=== PATIENT | male | born 1975 | race Two or more races ===

== ENCOUNTER 2018-09-01 17:26 | Observation (INO) | payer BC ==
[2018-09-01] MEDS ORDERED: Sodium Chloride 0.9% 2.5 ML Syringe FLUSH PRN (17:29)
[2018-09-01] MEDS ORDERED: Sodium Chloride 0.9% 1,000 ML IV ONE (17:29)
[2018-09-01] MEDS ORDERED: Sodium Chloride 0.9% 10 ML Syringe FLUSH PRN (17:29)
--- NOTE | 2018-09-01 17:30 | EDM.PDOC ---
ED HPI GENERAL MEDICAL PROBLEM - General Chief Complaint: Chest Pain Stated Complaint: CHEST PAIN Time Seen by Provider: 09/01/18 17:29 Source of Information: Reports: Patient History Limitations: Reports: No Limitations - History of Present Illness INITIAL COMMENTS - FREE TEXT/NARRATIVE: HISTORY AND PHYSICAL: History of present illness: Patient is a 43-year-old male who presents to the emergency room today with complaints of chest pain and tachycardia. He states while at work he started to develop chest pain and felt like "my heart was racing". He states this was intense for approximately 15 minutes but since arriving to the emergency room feels like his symptoms have improved (has been ongoing for approx 30 minutes since arrival to ED). Patient denies any fever, chills, headache, change in vision, syncope or near syncope. Denies any back pain, shortness of breath or cough. Denies any abdominal pain, nausea, vomiting, diarrhea, constipation or dysuria. Has not noted any blood in urine or stool. Patient has been eating and drinking appropriately. Review of systems: As per history of present illness and below otherwise all systems reviewed and negative. Past medical history: As per history of present illness and as reviewed below otherwise noncontributory. Surgical history: As per history of present illness and as reviewed below otherwise noncontributory. Social history: See social history for further information Family history: As per history of present illness and as reviewed below otherwise noncontributory. Physical exam: General: Well-developed and well-nourished 43-year-old male. Alert and oriented. Nontoxic appearing and in no acute distress. HEENT: Atraumatic, normocephalic, pupils equal and reactive bilaterally, negative for conjunctival pallor or scleral icterus, mucous membranes moist, TMs normal bilaterally, throat clear, neck supple, nontender, trachea midline. No drooling or trismus noted. No meningeal signs. No hot potato voice noted. Lungs: Clear to auscultation, breath sounds equal bilaterally, chest nontender. Heart: Irregular rate and rhythm with heart rate of 120-140s. Abdomen: Soft, nondistended, nontender. Negative for masses or hepatosplenomegaly. Negative for costovertebral tenderness. Pelvis: Stable nontender. Skin: Intact, warm, dry. No lesions or rashes noted. Extremities: Atraumatic, moves all extremities per self without difficulty or deficits, negative for cords or calf pain. Neurovascular unremarkable. Neuro: Awake, alert, oriented. Cranial nerves II through XII unremarkable. Cerebellum unremarkable. Motor and sensory unremarkable throughout. Exam nonfocal. Notes: Pulse has improved down to the 90s to 100's. Patient does have an elevated troponin. Contacted Dr. Veloz about keeping this patient for observation. He is agreeable that this patient would benefit from further evaluation and management. Patient and at bedside are aware and agreeable to plan of care. Denies any further questions or concerns. Diagnostics: CBC, CMP, troponin, EKG, one view chest Therapeutics: IV fluid, Diltiazem Impression: New-onset of atrial fibrillation Plan: Observation admission to [facility] telemetry Definitive disposition and diagnosis as appropriate pending reevaluation and review of above. chest Pain Score (Numeric/FACES): 2 - Related Data Allergies Allergy/AdvReac Type Severity Reaction Status Date / Time No Known Allergies Allergy Verified 09/01/18 17:32 Home Meds: Home Meds . [No Known Home Meds] 09/01/18 [History] ED ROS GENERAL - Review of Systems Review Of Systems: ROS reveals no pertinent complaints other than HPI. ED EXAM, GENERAL - Physical Exam Exam: See Below (See dictation) Course - Vital Signs Last Recorded V/S: Last Vital Signs Temp 97.7 F 09/01/18 17:28 Pulse 90 09/01/18 18:00 Resp 18 09/01/18 18:00 BP 122/76 09/01/18 18:00 Pulse Ox 98 09/01/18 18:00 - Orders/Labs/Meds Orders: Active Orders 24 hr Category Date Time Status EKG Documentation Completion [RC] STAT Care 09/01/18 17:29 Active Sodium Chloride 0.9% [Normal Saline] 1,000 ml Med 09/01/18 17:29 Active IV STAT Sodium Chloride 0.9% [Saline Flush] Med 09/01/18 17:29 Active 10 ml FLUSH ASDIRECTED PRN Sodium Chloride 0.9% [Saline Flush] Med 09/01/18 17:29 Active 2.5 ml FLUSH ASDIRECTED PRN Saline Lock Insert [OM.PC] Stat Oth 09/01/18 17:29 Ordered Medication Orders Sodium Chloride (Normal Saline) 1,000 mls @ 999 mls/hr IV STAT ONE Stop: 09/01/18 18:29 Last Admin: 09/01/18 17:37 Dose: 999 mls/hr Sodium Chloride (Saline Flush) 10 ml FLUSH ASDIRECTED PRN PRN Reason: Keep Vein Open Sodium Chloride (Saline Flush) 2.5 ml FLUSH ASDIRECTED PRN PRN Reason: Keep Vein Open Labs: Laboratory Tests 09/01/18 09/01/18 Range/Units 17:35 17:35 WBC 8.45 (4.0-11.0) K/uL RBC 5.03 (4.50-5.90) M/uL Hgb 15.4 (13.0-17.0) g/dL Hct 46.6 (38.0-50.0) % MCV 92.6 (80.0-98.0) fL MCH 30.6 (27.0-32.0) pg MCHC 33.0 (31.0-37.0) g/dL RDW Std Deviation 47.7 (28.0-62.0) fl RDW Coeff of Wilbur 14 (11.0-15.0) % Plt Count 147 L (150-400) K/uL MPV 12.90 H (7.40-12.00) fL Neut % (Auto) 67.6 (48.0-80.0) % Lymph % (Auto) 26.2 (16.0-40.0) % [place] % (Auto) 5.9 (0.0-15.0) % Eos % (Auto) 0.2 (0.0-7.0) % Baso % (Auto) 0.1 (0.0-1.5) % Neut # (Auto) 5.7 (1.4-5.7) K/uL Lymph # (Auto) 2.2 (0.6-2.4) K/uL [place] # (Auto) 0.5 (0.0-0.8) K/uL Eos # (Auto) 0.0 (0.0-0.7) K/uL Baso # (Auto) 0.0 (0.0-0.1) K/uL Nucleated RBC % 0.0 /100WBC Nucleated RBCs # 0 K/uL Sodium 142 (136-148) mmol/L Potassium 3.9 (3.5-5.1) mmol/L Chloride 106 (98-107) mmol/L Carbon Dioxide 24.4 (21.0-32.0) mmol/L BUN 18 (7.0-18.0) mg/dL Creatinine 1.2 (0.8-1.3) mg/dL Est Cr Clr Drug Dosing TNP Estimated GFR (MDRD) > 60.0 ml/min Glucose 89 (74-106) mg/dL Calcium 8.7 (8.5-10.1) mg/dL Total Bilirubin 0.5 (0.2-1.0) mg/dL AST 114 H (15-37) IU/L ALT 75 H (14-63) IU/L Alkaline Phosphatase 127 H (46-116) U/L Troponin I 0.099 H* (0.000-0.056) ng/mL Total Protein 7.1 (6.4-8.2) g/dL Albumin 3.8 (3.4-5.0) g/dL Globulin 3.3 (2.6-4.0) g/dL Albumin/Globulin Ratio 1.2 (0.9-1.6) Meds: Medications Generic Name Dose Route Start Last Admin Trade Name Freq PRN Reason Stop Dose Admin Sodium Chloride 1,000 mls @ 999 mls/hr 09/01/18 17:29 09/01/18 17:37 Normal Saline IV 09/01/18 18:29 999 mls/hr STAT ONE Administration Sodium Chloride 10 ml 09/01/18 17:29 Saline Flush FLUSH ASDIRECTED PRN Keep Vein Open Sodium Chloride 2.5 ml 09/01/18 17:29 Saline Flush FLUSH ASDIRECTED PRN Keep Vein Open Discontinued Medications Generic Name Dose Route Start Last Admin Trade Name Freq PRN Reason Stop Dose Admin Diltiazem HCl 20 mg 09/01/18 17:40 09/01/18 17:51 Diltiazem IVPUSH 09/01/18 17:41 20 mg ONETIME ONE Administration Departure - Departure Time of Disposition: 18:26 Disposition: Refer to Observation Clinical Impression: Atrial fibrillation, new onset Forms: ED Department Discharge - My Orders Last 24 Hours: My Active Orders 09/01/18 17:29 EKG Documentation Completion [RC] STAT Sodium Chloride 0.9% [Normal Saline] 1,000 ml IV STAT Sodium Chloride 0.9% [Saline Flush] 10 ml FLUSH ASDIRECTED PRN Sodium Chloride 0.9% [Saline Flush] 2.5 ml FLUSH ASDIRECTED PRN Saline Lock Insert [OM.PC] Stat - Assessment/Plan Last 24 Hours: My Active Orders 09/01/18 17:29 EKG Documentation Completion [RC] STAT Sodium Chloride 0.9% [Normal Saline] 1,000 ml IV STAT Sodium Chloride 0.9% [Saline Flush] 10 ml FLUSH ASDIRECTED PRN Sodium Chloride 0.9% [Saline Flush] 2.5 ml FLUSH ASDIRECTED PRN Saline Lock Insert [OM.PC] Stat
[2018-09-01] MEDS ORDERED: Diltiazem 25 MG/5 ML SDV IVPUSH ONE (17:40)
[2018-09-01] MEDS ORDERED: Enoxaparin 30 MG/0.3 ML Syringe SUBCUT SCH (18:00)
[2018-09-01 18:04] LABS: CHLORIDE,CL 106 mmol/L (98-107); SODIUM,NA 142 mmol/L (136-148)
--- NOTE | 2018-09-01 18:21 | CR ---
INDICATION: Chest pain and dizziness TECHNIQUE: Chest 1 view COMPARISON: None FINDINGS: Cardiovascular and mediastinum: Heart size and vasculature are normal in caliber and appearance. Lungs and pleural spaces: Lungs are clear. No sign of infiltrate or mass. No sign of pleural effusion. No pneumothorax. Bones and soft tissues: No significant findings. IMPRESSION: No acute or significant findings. Dictated by Eulogio Baker MD @ Sep 01 2018 6:15PM Signed by Dr. Eulogio Baker @ Sep 01 2018 6:19PM
[2018-09-01] MEDS ORDERED: Docusate Sodium 100 MG Cap PO PRN (18:31)
[2018-09-01] MEDS ORDERED: Ondansetron 4 MG Tab.DIS PO PRN (18:31)
[2018-09-01] MEDS ORDERED: oxyCODONE 5 MG Tab PO PRN (18:31)
[2018-09-01] MEDS ORDERED: Temazepam 15 MG Cap PO PRN (18:31)
[2018-09-01] MEDS ORDERED: Acetaminophen 325 MG Tab PO PRN (18:31)
[2018-09-02 06:20] LABS: CHLORIDE,CL 108 mmol/L (98-107); SODIUM,NA 142 mmol/L (136-148)
--- NOTE | 2018-09-02 07:50 | PCM.HP ---
H&P History of Present Illness - General Date of Service: 09/02/18 Admit Problem/Dx: Admission Diagnosis/Problem Admission Diagnosis/Problem Atrial fibrillation Source of Information: Patient History Limitations: Reports: No Limitations - History of Present Illness Initial Comments - Free Text/Narative: The patient is a 43-year-old gentleman who had presented to the emergency department out of concern of racing heart. 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 Upon arrival to the emergency department the patient said that his overall symptoms had improved somewhat. The patient has been in good state of health and he does not take any medications chronically. Patient also reports that he had some pain in his chest and down his left arm during his rapid heart rate. He also had reported some shortness of breath and some diaphoresis. He described the pain as sharp and stabbing. The patient also denied any fever or chills. He had no abdominal pain, nausea or vomiting. The patient also has no immediate family history of heart disease or diabetes. Onset of Symptoms: Reports: Sudden Duration of Symptoms: Reports: Hour(s):, Resolved Prior to Arrival Location: Reports: Chest Quality: Reports: Ache Severity: Mild Improves with: Reports: None Worsens with: Reports: None Associated Symptoms: Reports: Diaphoresis chest Pain Score (Numeric/FACES): 2 - Related Data Allergies/Adverse Reactions: Allergies Allergy/AdvReac Type Severity Reaction Status Date / Time No Known Allergies Allergy Verified 09/01/18 17:32 Home Medications: Home Meds . [No Known Home Meds] 09/01/18 [History] Past Medical History - Past Health History Medical/Surgical History: Denies Medical/Surgical History HEENT History: Reports: None Cardiovascular History: Reports: None Respiratory History: Reports: None Gastrointestinal History: Reports: None Genitourinary History: Reports: None Musculoskeletal History: Reports: None Neurological History: Reports: None Psychiatric History: Reports: None Endocrine/Metabolic History: Reports: None Hematologic History: Reports: None Immunologic History: Reports: None Oncologic (Cancer) History: Reports: None Dermatologic History: Reports: None - Infectious Disease History Infectious Disease History: Reports: None Social & Family History - Family History Family Medical History: Noncontributory Cardiac: Reports: Heart Failure, High Cholesterol, Hypertension, Pacemaker - Tobacco Use Smoking Status *Q: Never Smoker - Caffeine Use Caffeine Use: Reports: Energy Drinks Caffeine Use Comment: 1 energy drink daily - Alcohol Use Alcohol Use History: Yes Alcohol Use in Last Twelve Months: Yes - Recreational Drug Use Recreational Drug Use: Yes Drug Use in Last 12 Months: No Other Recreational Drug Type: past hx of cocaine and meth before 2013 - Living Situation & Occupation Living situation: Reports: with Significant Other Occupation: Employed H&P Review of Systems - Review of Systems: Review Of Systems: See Below General: Reports: Diaphoresis HEENT: Reports: No Symptoms Pulmonary: Reports: No Symptoms Cardiovascular: Reports: Chest Pain, Palpitations Gastrointestinal: Reports: No Symptoms Genitourinary: Reports: No Symptoms Musculoskeletal: Reports: No Symptoms Skin: Reports: No Symptoms Psychiatric: Reports: No Symptoms Neurological: Reports: No Symptoms Hematologic/Lymphatic: Reports: No Symptoms Immunologic: Reports: No Symptoms Exam - Exam Exam: See Below - Vital Signs Vital Signs: Last Vital Signs Temp 36.6 C 09/02/18 05:45 Pulse 78 09/02/18 05:45 Resp 20 09/02/18 05:45 BP 130/79 09/02/18 05:45 Pulse Ox 97 09/02/18 05:45 Weight: 83.7 kg - Exam Quality Assessment: No: Supplemental Oxygen General: Alert, Oriented, Cooperative HEENT: Conjunctiva Clear, EACs Clear, EOMI, Mucosa Moist & [place], Nares Patent, PERRLA Neck: Supple, Trachea Midline Lungs: Clear to Auscultation, Normal Respiratory Effort Cardiovascular: Regular Rate, Regular Rhythm GI/Abdominal Exam: Normal Bowel Sounds, Soft, No Distention Back Exam: Normal Inspection, Full Range of Motion Extremities: Normal Inspection, Normal Range of Motion, No Pedal Edema Skin: Warm, Dry, Intact Neurological: Cranial Nerves Intact Neuro Extensive - Mental Status: Alert, Oriented x3 Neuro Extensive - Motor, Sensory, Reflexes: CN II-XII Intact Psychiatric: Alert, Normal Affect, Normal Mood - Patient Data Lab Results Last 24 hrs: Laboratory Results - last 24 hr 09/01/18 09/01/18 09/01/18 Range/Units 17:35 17:35 23:30 WBC 8.45 (4.0-11.0) K/uL RBC 5.03 (4.50-5.90) M/uL Hgb 15.4 (13.0-17.0) g/dL Hct 46.6 (38.0-50.0) % MCV 92.6 (80.0-98.0) fL MCH 30.6 (27.0-32.0) pg MCHC 33.0 (31.0-37.0) g/dL RDW Std Deviation 47.7 (28.0-62.0) fl RDW Coeff of Wilbur 14 (11.0-15.0) % Plt Count 147 L (150-400) K/uL MPV 12.90 H (7.40-12.00) fL Neut % (Auto) 67.6 (48.0-80.0) % Lymph % (Auto) 26.2 (16.0-40.0) % [place] % (Auto) 5.9 (0.0-15.0) % Eos % (Auto) 0.2 (0.0-7.0) % Baso % (Auto) 0.1 (0.0-1.5) % Neut # (Auto) 5.7 (1.4-5.7) K/uL Lymph # (Auto) 2.2 (0.6-2.4) K/uL [place] # (Auto) 0.5 (0.0-0.8) K/uL Eos # (Auto) 0.0 (0.0-0.7) K/uL Baso # (Auto) 0.0 (0.0-0.1) K/uL Nucleated RBC % 0.0 /100WBC Nucleated RBCs # 0 K/uL Sodium 142 (136-148) mmol/L Potassium 3.9 (3.5-5.1) mmol/L Chloride 106 (98-107) mmol/L Carbon Dioxide 24.4 (21.0-32.0) mmol/L BUN 18 (7.0-18.0) mg/dL Creatinine 1.2 (0.8-1.3) mg/dL Est Cr Clr Drug Dosing TNP Estimated GFR (MDRD) > 60.0 ml/min Glucose 89 (74-106) mg/dL Calcium 8.7 (8.5-10.1) mg/dL Magnesium 2.3 (1.8-2.4) mg/dL Total Bilirubin 0.5 (0.2-1.0) mg/dL AST 114 H (15-37) IU/L ALT 75 H (14-63) IU/L Alkaline Phosphatase 127 H (46-116) U/L Troponin I 0.099 H* 1.084 H* (0.000-0.056) ng/mL Total Protein 7.1 (6.4-8.2) g/dL Albumin 3.8 (3.4-5.0) g/dL Globulin 3.3 (2.6-4.0) g/dL Albumin/Globulin Ratio 1.2 (0.9-1.6) 09/02/18 09/02/18 09/02/18 Range/Units 05:25 05:25 05:25 WBC 5.61 (4.0-11.0) K/uL RBC 4.61 (4.50-5.90) M/uL Hgb 13.9 (13.0-17.0) g/dL Hct 42.7 (38.0-50.0) % MCV 92.6 (80.0-98.0) fL MCH 30.2 (27.0-32.0) pg MCHC 32.6 (31.0-37.0) g/dL RDW Std Deviation 48.1 (28.0-62.0) fl RDW Coeff of Wilbur 14 (11.0-15.0) % Plt Count 137 L (150-400) K/uL MPV 13.70 H (7.40-12.00) fL Neut % (Auto) 53.3 (48.0-80.0) % Lymph % (Auto) 35.5 (16.0-40.0) % [place] % (Auto) 9.4 (0.0-15.0) % Eos % (Auto) 1.4 (0.0-7.0) % Baso % (Auto) 0.4 (0.0-1.5) % Neut # (Auto) 3.0 (1.4-5.7) K/uL Lymph # (Auto) 2.0 (0.6-2.4) K/uL [place] # (Auto) 0.5 (0.0-0.8) K/uL Eos # (Auto) 0.1 (0.0-0.7) K/uL Baso # (Auto) 0.0 (0.0-0.1) K/uL Nucleated RBC % 0.0 /100WBC Nucleated RBCs # 0 K/uL Sodium 142 (136-148) mmol/L Potassium 4.0 (3.5-5.1) mmol/L Chloride 108 H (98-107) mmol/L Carbon Dioxide 23.1 (21.0-32.0) mmol/L BUN 14 (7.0-18.0) mg/dL Creatinine 1.0 (0.8-1.3) mg/dL Est Cr Clr Drug Dosing 91.20 Estimated GFR (MDRD) > 60.0 ml/min Glucose 105 (74-106) mg/dL Calcium 8.0 L (8.5-10.1) mg/dL Magnesium (1.8-2.4) mg/dL Total Bilirubin (0.2-1.0) mg/dL AST (15-37) IU/L ALT (14-63) IU/L Alkaline Phosphatase (46-116) U/L Troponin I 0.588 H* (0.000-0.056) ng/mL Total Protein (6.4-8.2) g/dL Albumin (3.4-5.0) g/dL Globulin (2.6-4.0) g/dL Albumin/Globulin Ratio (0.9-1.6) Result Diagrams: 09/02/18 05:25 09/02/18 05:25 EKG INTERPRETATION EKG Date: 09/02/18 Time: 07:00 Rhythm: NSR [place]: Normal P-Wave: Present QRS: Normal ST-T: Other (Borderline) QT: Normal Comparison: No Change - Problem List (1) Acute coronary insufficiency syndrome SNOMED Code(s): 360845643 ICD Code: I20.0 - UNSTABLE ANGINA Status: Acute Priority: High Current Visit: Yes (2) Atrial fibrillation, new onset SNOMED Code(s): 88895234 ICD Code: I48.91 - UNSPECIFIED ATRIAL FIBRILLATION Status: Acute Priority : High Current Visit: Yes (3) Chest pain SNOMED Code(s): 91849002 ICD Code: R07.9 - CHEST PAIN, UNSPECIFIED Status: Acute Priority: High Current Visit: Yes Qualifiers: Chest pain type: chest pain due to myocardial ischemia Ischemic chest pain type: unstable angina pectoris Qualified Code(s): I20.0 - Unstable angina (4) Elevated troponin SNOMED Code(s): 947232120, 616644216, 775340310 ICD Code: R74.8 - ABNORMAL LEVELS OF OTHER SERUM ENZYMES Status: Acute Priority: High Current Visit: Yes Problem List Initiated/Reviewed/Updated: Yes Orders Last 24hrs: Active Orders 24 hr Category Date Time Status Admission Status [Patient Status] [ADT] Stat ADT 09/01/18 18:27 Active Cardiac Monitoring [RC] Q8HR Care 09/01/18 18:32 Active EKG Documentation Completion [RC] AM Care 09/02/18 08:00 Active EKG Documentation Completion [RC] STAT Care 09/01/18 17:29 Active Oxygen Therapy [RC] PRN Care 09/01/18 18:31 Active Up ad Luda [RC] ASDIRECTED Care 09/01/18 18:31 Active VTE/DVT Education [RC] PER UNIT ROUTINE Care 09/01/18 18:31 Active Vital Signs [RC] Q4H Care 09/01/18 18:31 Active Acetaminophen [Tylenol] Med 09/01/18 18:31 Active 650 mg PO Q4H PRN Docusate Sodium [Colace] Med 09/01/18 18:31 Active 100 mg PO BID PRN Enoxaparin [Lovenox] Med 09/01/18 18:00 Active 30 mg SUBCUT Q24H Ondansetron [Zofran ODT] Med 09/01/18 18:31 Active 4 mg PO Q4H PRN Sodium Chloride 0.9% [Saline Flush] Med 09/01/18 17:29 Active 10 ml FLUSH ASDIRECTED PRN Sodium Chloride 0.9% [Saline Flush] Med 09/01/18 17:29 Active 2.5 ml FLUSH ASDIRECTED PRN Temazepam [Restoril] Med 09/01/18 18:31 Active 15 mg PO BEDTIME PRN oxyCODONE Med 09/01/18 18:31 Active 5 mg PO Q4H PRN Saline Lock Insert [OM.PC] Stat Oth 09/01/18 17:29 Ordered Resuscitation Status Routine Resus Stat 09/01/18 18:31 Ordered Medication Orders Acetaminophen (Tylenol) 650 mg PO Q4H PRN PRN Reason: Pain (Mild 1-3)/fever Docusate Sodium (Colace) 100 mg PO BID PRN PRN Reason: Constipation Enoxaparin Sodium (Lovenox) 30 mg SUBCUT Q24H CHANDLER Last Admin: 09/01/18 20:20 Dose: 30 mg Ondansetron HCl (Zofran Odt) 4 mg PO Q4H PRN PRN Reason: nausea, able to take PO Oxycodone HCl (Oxycodone) 5 mg PO Q4H PRN PRN Reason: Pain (moderate 4-6) Last Admin: 09/01/18 23:37 Dose: 5 mg Sodium Chloride (Saline Flush) 10 ml FLUSH ASDIRECTED PRN PRN Reason: Keep Vein Open Sodium Chloride (Saline Flush) 2.5 ml FLUSH ASDIRECTED PRN PRN Reason: Keep Vein Open Temazepam (Restoril) 15 mg PO BEDTIME PRN PRN Reason: Sleep Assessment/Plan Comment:: The patient is a 43-year-old gentleman who had presented to the emergency department with essentially new onset atrial fibrillation with RVR. A further, more detailed history from the patient had elicited that he had chest pain that was associated with this it was noted to be radiating into his neck as well as his left arm. The patient also reportedly had diaphoresis. There is no information coupled with the fact that the patient had a rise in his troponins and a subsequent downtrend had indicated that this was likely acute coronary syndrome with coronary artery insufficiency. The patient's A. fib with RVR had revealed this ischemia. The patient was advised of consideration was transferred to tertiary care center for workup with acute coronary syndrome. The patient will be kept nothing by mouth. I've also ordered that the patient have IV established normal saline at 75 mL per hour. The patient is to go to the emergency department, Dr. Leigh, is accepting physician.
[2018-09-02] MEDS ORDERED: Sodium Chloride 0.9% 1,000 ML IV SCH (09:30)
== END 2018-09-02 09:54 ==
LOC: MW.ED 17:26 → MW.ICU 19:01
PROVIDERS: ADMIT Internal Medicine; ATTEND Internal Medicine
DX: I48.0 Paroxysmal atrial fibrillation (principal); I20.0 Unstable angina; R74.8 Abnormal levels of other serum enzymes
CPT/HCPCS: 36415; 71045; 80048; 80053; 83735; 84484; 85025; 93005; 96360; 96374; 99285; A9270; J1650; J3490; J7040; 96372; 99284; G0378